=== PATIENT | male | born 1990 | race African-American/Black ===

== ENCOUNTER 2017-11-26 23:22 | Emergency (ER) | payer MEDICAID ==
[~2017-11-26] VITALS: Ht 185.4 cm; Wt 84.0 kg
[2017-11-27 04:07] LABS: BG BASE EXCESS 1.5 mmol/L (-2.0-2.0); BG CARBOXYHEMOGLOBIN 0.3 % (0.5-1.5); BG DEOXYHEMOGLOBIN 0.5 % (0.0-5.0); BG FRACTION INSPIRED OXYGEN 100; BG HCO3 ACT 24.8 mmol/L (22.0-26.0); BG METHEMOGLOBIN 0.3 % (0.0-1.5); BG OXYGEN SATURATION 99.5 % (92.0-98.5); BG OXYHEMOGLOBIN 98.9 % (94.0-97.0); BG PCO2 35.4 mmHg (35.0-45.0); BG PH 7.464 (7.350-7.450); BG PO2 379.6 mmHg (75.0-100.0); BG SAMPLE SITE LEFT BRACHIAL; BG TOTAL HEMOGLOBIN 15.1 g/dL (12.0-18.0); BG VENT MODE MASK - NRB
[2017-11-27 05:04] VITALS: BP 121/77
== END 2017-11-27 05:40 | disposition home or self-care (01) ==
LOC: ER 23:22
DX: R51 Headache (principal); Z57.5 Occupational exposure to toxic agents in other industries
CPT/HCPCS: 36600; 82375; 82805; 99284

== ENCOUNTER 2018-10-28 16:32 | Emergency (ER) | payer MEDICAID ==
[~2018-10-28] VITALS: Ht 188 cm; Wt 93.0 kg
[2018-10-28 16:35] VITALS: BP 132/72
== END 2018-10-28 21:00 | disposition left against medical advice (07) ==
LOC: ER 16:32
DX: Z53.21 Procedure and treatment not carried out due to patient leaving prior to being seen by health care provider (principal)

== ENCOUNTER 2018-10-30 09:26 | Emergency (ER) | payer MEDICAID ==
[~2018-10-30] VITALS: Ht 188 cm; Wt 93.0 kg
[2018-10-30 13:02] VITALS: BP 123/77
== END 2018-10-30 12:52 | disposition home or self-care (01) ==
LOC: ER 09:26
DX: S83.92XA Sprain of unspecified site of left knee, initial encounter (principal); V00.141A Fall from scooter (nonmotorized), initial encounter; Y93.89 Activity, other specified; Y92.89 Other specified places as the place of occurrence of the external cause; R03.0 Elevated blood-pressure reading, without diagnosis of hypertension
CPT/HCPCS: 73562; 99283; L1830; Z7610